=== PATIENT | male | born 1970 | race Caucasian/White ===

== ENCOUNTER 2021-04-12 17:46 | Emergency (ER) | payer BC ==
--- NOTE | 2021-04-12 18:17 | EDM.PDOC ---
ED HPI GENERAL MEDICAL PROBLEM - General Stated Complaint: left arm infection Time Seen by Provider: 04/12/21 18:00 Source of Information: Reports: Patient History Limitations: Reports: No Limitations - History of Present Illness INITIAL COMMENTS - FREE TEXT/NARRATIVE: Patient presents to the Ed for left arm infection. He states he hit the elbow area on a " tiff nail" on 04/08. He is from the [facility], works locally here all week at the [employer]. He noted an abrasion on the left elbow at the time, did not think anything about it. over the last couple of days he has noticed swelling of the arm, redness that is progressing. He has altered sensation on the left side of his body due to previous stroke. He is only an aspirin for that. no fevers or body aches. Concerned for infection and came in. Allergic to penicillin. No local doctor and is not going home soon. 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 Denies: Fever, Chills, Malaise, Weakness HEENT: Reports: No Symptoms. Denies: Throat Swelling Respiratory: Reports: No Symptoms. Denies: Shortness of Breath, Cough Cardiovascular: Reports: No Symptoms. Denies: Chest Pain, Dyspnea on Exertion Endocrine: Reports: No Symptoms. Denies: Fatigue GI/Abdominal: Reports: No Symptoms. Denies: Abdominal Pain, Anorexia, Decreased Appetite : Reports: No Symptoms Musculoskeletal: Reports: Other (left arm with swelling and redness, abrasion on the left elbow near the olecrannon. ) Skin: Reports: Erythema, Wound Neurological: Denies: Confusion, Headache ED EXAM, GENERAL - Physical Exam Exam: See Below Exam Limited By: No Limitations General Appearance: Alert, WD/WN, No Apparent Distress Eye Exam: Bilateral Eye: EOMI, Normal Inspection, PERRL Ears: Normal External Exam Nose: Normal Inspection Throat/Mouth: Normal Inspection, Normal Lips, Normal Voice Head: Atraumatic Neck: Normal Inspection, Non-Tender Respiratory/Chest: No Respiratory Distress, Lungs Clear, Chest Non-Tender Cardiovascular: Regular Rate, Rhythm, No Edema Peripheral Pulses: 4+: Brachial (R), Radial (L) Extremities: Other (left arm with erythema and swelling from the wrist to the mid upper arm. normal rom of the wrist and elbow. abrasion without bleedin or drainage at the olecanon area on the left. Good distal pulses and capillary refill) Neurological: Oriented, CN II-XII Intact, Normal Cognition Course - Orders/Labs/Meds Orders: Active Orders 24 hr Category Date Time Status Vaccines to be Administered [RC] PER UNIT ROUTINE Care 04/12/21 18:03 Active CBC WITH AUTO DIFF [HEME] Stat Lab 04/12/21 18:27 Results SEDIMENTATION RATE AUTO [HEME] Stat Lab 04/12/21 18:27 Results Sodium Chloride 0.9% [Saline Flush] Med 04/12/21 18:46 Active 10 ml FLUSH ASDIRECTED PRN Peripheral IV Insertion Adult [OM.PC] Routine Oth 04/12/21 18:46 Ordered Medication Orders Sodium Chloride (Sodium Chloride 0.9% 10 Ml Syringe) 10 ml FLUSH ASDIRECTED PRN PRN Reason: Keep Vein Open Labs: Laboratory Tests 04/12/21 04/12/21 04/12/21 Range/Units 18:27 18:27 18:27 WBC 5.9 (4.0-10.0) x10^3/uL RBC 4.30 L (4.5-6.0) x10^6/uL Hgb 12.6 L (14.0-18.0) g/dL Hct 37.4 L (40.0-52.0) % MCV 87.0 (78.0-93.0) fL MCH 29.3 (26.0-32.0) pg MCHC 33.7 (32.0-36.0) g/dL RDW Coeff of Lamin 13.6 (10.0-15.0) % Plt Count 142 (130-400) x10^3/uL Neut % (Auto) 64.4 (50.0-80.0) % Lymph % (Auto) 24.1 L (25.0-50.0) % [place] % (Auto) 6.9 (2.0-11.0) % Eos % (Auto) 4.1 H (0.0-4.0) % Baso % (Auto) 0.5 (0.2-1.2) % Sodium 143 (136-145) mmol/L Potassium 3.9 (3.5-5.1) mmol/L Chloride 107 (98-107) mmol/L Carbon Dioxide 28 (21-32) mmol/L Anion Gap 11.9 (5-15) mmol/L BUN 17 (7-18) mg/dL Creatinine 1.4 H (0.70-1.30) mg/dL Est Cr Clr Drug Dosing TNP Estimated GFR (MDRD) 54 Glucose 114 H (70-99) mg/dL Lactic Acid 1.3 (0.4-2.0) mmol/L Calcium 8.5 (8.5-10.1) mg/dL Corrected Calcium 9.1 (8.5-10.1) mg/dL Total Bilirubin 0.3 (0.2-1.0) mg/dL AST 46 H (15-37) U/L ALT 55 (16-63) U/L Alkaline Phosphatase 56 (46-116) U/L C-Reactive Protein 4.2 H (<=0.9) mg/dL Total Protein 7.1 (6.4-8.2) g/dL Albumin 3.2 L (3.4-5.0) g/dL Globulin 3.9 Albumin/Globulin Ratio 0.82 Meds: Medications Generic Name Dose Route Start Last Admin Trade Name Freq PRN Reason Stop Dose Admin Sodium Chloride 10 ml 04/12/21 18:46 Sodium Chloride 0.9% 10 Ml Syringe FLUSH ASDIRECTED PRN Keep Vein Open Discontinued Medications Generic Name Dose Route Start Last Admin Trade Name Freq PRN Reason Stop Dose Admin Ceftriaxone Sodium 2 gm 04/12/21 18:47 Ceftriaxone 2 Gm Vial IVPUSH 04/12/21 18:48 STAT ONE Ceftriaxone Sodium 2 gm/ 0 gm 04/12/21 18:02 Lidocaine HCl 4.2 ml IM 04/12/21 18:03 ONETIME ONE Diphtheria/Tetanus/Acell Pertussis 0.5 ml 04/12/21 18:03 Diphtheria,Pertussis(Acell),Tetanus Vaccine 0.5 Ml Syringe IM 04/12/21 18:04 .ONCE ONE - Re-Assessments/Exams Free Text/Narrative Re-Assessment/Exam: 04/12/21 18:31 Patient has cellulitis, probably due to the lesion on the left elbow. Will check labs for baseline. Rocpe[place] 2 grams IM. will give copy of labs for traveling to the [facility]. 04/12/21 19:26 Departure - Departure Time of Disposition: 19:17 Disposition: Home, Self-Care 01 Condition: Good Clinical Impression: Cellulitis - Discharge Information *PRESCRIPTION DRUG MONITORING PROGRAM REVIEWED*: Not Applicable *COPY OF PRESCRIPTION DRUG MONITORING REPORT IN PATIENT MUNIRA: Not Applicable Prescriptions: Sulfamethoxazole/Trimethoprim [Bactrim Ds Tablet] 1 each PO Q12H 7 Days #14 tablet Instructions: Cellulitis, Adult Additional Instructions: The outline of the infection has been markered. Try not to wash it off. A small increase of redness over the line is expected and regression of the redness will take up to 36 hours to be noticable. you were given an injection of antibiotics tonight. Start orals tomorrow and finish. return to the ED for worsening redness, fever, increased pain or difficulty with movement of the arm. Otherwise follow up next week with PCP to ensure improving. - My Orders Last 24 Hours: My Active Orders 04/12/21 18:03 Vaccines to be Administered [RC] PER UNIT ROUTINE 04/12/21 18:27 CBC WITH AUTO DIFF [HEME] Stat SEDIMENTATION RATE AUTO [HEME] Stat 04/12/21 18:46 Sodium Chloride 0.9% [Saline Flush] 10 ml FLUSH ASDIRECTED PRN Peripheral IV Insertion Adult [OM.PC] Routine - Assessment/Plan Last 24 Hours: My Active Orders 04/12/21 18:03 Vaccines to be Administered [RC] PER UNIT ROUTINE 04/12/21 18:27 CBC WITH AUTO DIFF [HEME] Stat SEDIMENTATION RATE AUTO [HEME] Stat 04/12/21 18:46 Sodium Chloride 0.9% [Saline Flush] 10 ml FLUSH ASDIRECTED PRN Peripheral IV Insertion Adult [OM.PC] Routine
[2021-04-12] MEDS: Diphtheria,Pertussis(Acell),Tetanus Vaccine 0.5 ML Syringe IM ONE (18:30)
[2021-04-12] MEDS ORDERED: Sodium Chloride 0.9% 10 ML Syringe FLUSH PRN (18:46)
[2021-04-12 18:53] LABS: CHLORIDE,CL 107 mmol/L (98-107); SODIUM,NA 143 mmol/L (136-145)
[2021-04-12 18:56] LABS: ANION GAP 11.9 mmol/L (5-15)
[2021-04-12] MEDS: cefTRIAXone 2 GM Vial IVPUSH ONE (19:25)
[2021-04-12] MEDS: cefTRIAXone 2 GM, Lidocaine 1% 4.2 ML IM ONE ×2 (19:27)
== END 2021-04-12 19:41 | disposition home or self-care (01) ==
LOC: VM.ED 17:46
DX: L03.114 Cellulitis of left upper limb (principal); Z86.73 Personal history of transient ischemic attack (TIA), and cerebral infarction without residual deficits; Z88.0 Allergy status to penicillin; Z72.0 Tobacco use; Z23 Encounter for immunization; Z79.82 Long term (current) use of aspirin
CPT/HCPCS: 36415; 80053; 83605; 85025; 85652; 86140; 90471; 90715; 96374; 99283; J0696